=== PATIENT | male | born 1930 | race Caucasian/White ===

== ENCOUNTER 2018-07-21 18:46 | Inpatient (IN) | payer OTHER, MEDICARE ==
[~2018-07-21] VITALS: Ht 182.9 cm; Wt 74.1 kg
[2018-07-21 19:00] VITALS: BP 145/91
[2018-07-21] MEDS ORDERED: ASPIR 8181 MG PO (19:18)
[2018-07-21] MEDS ORDERED: CLONIDINE0.1 PO (19:18)
[2018-07-21] MEDS ORDERED: WELLBUTRIN 100100 MG PO (19:19)
[2018-07-21] MEDS ORDERED: COENZYME Q-1030 MG PO (19:20)
[2018-07-21] MEDS ORDERED: FISH OIL 1,001000 M2 PO (19:21)
[2018-07-21] MEDS ORDERED: GLUCOSAMINE HC500 MG PO (19:21)
[2018-07-21] MEDS ORDERED: COL-RITE250 MG PO (19:21)
[2018-07-21] MEDS ORDERED: LISINOPRIL20 MG PO (19:22)
[2018-07-21] MEDS ORDERED: ZOCOR40 MG PO (19:22)
[2018-07-21] MEDS ORDERED: PROBIOTIC1 EAC1 PO (19:22)
[2018-07-21] MEDS ORDERED: LOPRESSOR25 PO (19:22)
[2018-07-21] MEDS ORDERED: VITAMINC500 PO (19:23)
[2018-07-21] MEDS ORDERED: VITAMIN E400 UNIT PO (19:23)
[2018-07-21] MEDS ORDERED: VITAMIN D3400 UNIT PO (19:23)
[2018-07-21] MEDS ORDERED: VITAMIN B COMP1 EACH PO (19:24)
[2018-07-21 20:03] LABS: HEMATOCRIT 22.7 % (42.0-52.0); HEMOGLOBIN 7.5 gm/dL (14.0-18.0); RBC 2.16 mil/uL (4.50-6.00); WBC 26.7 thou/uL (4.0-11.0)
[2018-07-21 20:06] LABS: MCH 34.8 pg (26.0-34.0); MCV 105.3 fL (80.0-100.0); MPV 7.8 fl. (7.2-11.1); NUCLEATED RBCS 0 /100WBC; PLATELET COUNT* 124 thou/uL (150-400); RDW-CV 17.1 % (10.5-14.5)
[2018-07-21 20:10] LABS: CALCIUM 8.8 mg/dL (8.5-10.1); CREATININE 1.1 mg/dL (0.6-1.3); POTASSIUM 3.4 mmol/L (3.5-5.1)
[2018-07-21 20:15] LABS: ALBUMIN 3.2 g/dL (3.4-5.0); TOTAL BILIRUBIN 0.9 mg/dL (<0.1-1.0); TOTAL PROTEIN 7.4 g/dL (6.4-8.2)
[2018-07-21 20:23] LABS: ABSOLUTE LYMPHOCYTES 21.6 thou/uL (0.8-5.3); ABSOLUTE MONOCYTES 1.3 thou/uL (0.0-1.2); ABSOLUTE NEUTROPHILS 3.7 thou/uL (1.6-8.1); ATYPICAL LYMPHS 1 %; PLATELET ESTIMATE DECREASED
[2018-07-21 20:24] LABS: ANISOCYTOSIS 1+; MACROCYTES 1+
[2018-07-21 20:32] LABS: URINE BILIRUBIN NEGATIVE (Negative); URINE BLOOD NEGATIVE (Negative); URINE CLARITY CLEAR; URINE COLOR YELLOW; URINE GLUCOSE-RANDOM NEGATIVE (Negative); URINE KETONES NEGATIVE (Negative); URINE LEUKOCYTES-REFLEX NEGATIVE (Negative); URINE NITRITE-REFLEX NEGATIVE (Negative); URINE PROTEIN 1+ (Negative); URINE SPECIFIC GRAVITY >= 1.030 (1.005-1.030); URINE UROBILINOGEN 0.2 E.U./dl (0.2-1.0)
[2018-07-21 22:12] LABS: ABSOLUTE EOSINOPHILS 0.1 thou/uL (0.0-0.7); ABSOLUTE LYMPHOCYTES 23.1 thou/uL (0.8-5.3); ABSOLUTE MONOCYTES 1.2 thou/uL (0.0-1.2); ABSOLUTE NEUTROPHILS 4.2 thou/uL (1.6-8.1); BASOPHILS 0.1 %; EOSINOPHILS 0.2 %; HEMATOCRIT 22.8 % (42.0-52.0); HEMOGLOBIN 7.5 gm/dL (14.0-18.0); LYMPHOCYTES 80.8 %; MCH 34.7 pg (26.0-34.0); MCHC 32.7 g/dL (28.0-37.0); MCV 106.1 fL (80.0-100.0); MONOCYTES 4.1 %; MPV 7.7 fl. (7.2-11.1); NUCLEATED RBCS 0 /100WBC; PLATELET COUNT* 117 thou/uL (150-400); POLYS 14.8 %; RBC 2.15 mil/uL (4.50-6.00); WBC 28.6 thou/uL (4.0-11.0)
[2018-07-21 23:50] VITALS: BP 135/81
[2018-07-22 01:31] VITALS: BP 103/57; BP 104/70; BP 110/69; BP 111/68
[2018-07-22] MEDS ORDERED: WELLBUTRIN SR200 MG PO (04:23)
[2018-07-22] MEDS ORDERED: METAMUCIL1 EAC1 PO (04:28)
[2018-07-22] MEDS ORDERED: PREPARATION H1 EAC2 PAD (04:33)
[2018-07-22 06:33] LABS: HEMATOCRIT 22.2 % (42.0-52.0); HEMOGLOBIN 7.5 gm/dL (14.0-18.0)
--- NOTE | 2018-07-22 07:57 | NUR ---
PT ADMITTED TO UNIT. ASSESSMENT DOCUMENTED. MEDS GIVEN PER E-DEC. DURRING ADMISSION PT STATED THAT HE DID HAVE THOUGHTS OF HARMING HIMSELF AND HAD THOUGHTS THAT LIFE WAS NOT WORTH LIVING. PT STATED THAT HE WAS WANTING TO OVERDOSE ON BENEDRYL AND CLONIDINE. SI PRECAUTIONS PUT IN PLACE, OBSTETRICS NURSE PRACTITIONER NOTIFIED, DR NOTIFIED, AFFIDAVID FILLED OUT AND ON CHART. ONE UNIT OF BLOOD GIVEN. HOSPITALIST ORDERED FOR H&H AFTER ONE UNIT. NO REACTION TO BLOOD TRANSFUSING. WILL CONTINUE WITH PLAN OF CARE.
[2018-07-22 08:15] VITALS: BP 107/64
[2018-07-22 11:22] VITALS: BP 102/56; BP 104/59; BP 108/62; BP 126/79; BP 130/74; BP 97/55
--- NOTE | 2018-07-22 14:17 | EKG ---
[place] [address] ELECTROCARDIOGRAM REPORT Name: HERMELINDA LAURA Room: [address] ADM IN [facility].#: [id number] Admission: 07/21/18 Attend Phys: Joan Gregory MD Discharge: Date of : 32 Report #: [id number] THIS REPORT FOR: //name// [facility] ED Test Date: 2018-07-21 Test Time: 19:20:15 Pat Name: HERMELINDA LAURA Department: Room: [facility] Gender: M Mechanical Process Engineer: LAURIE : 1930 Requested By: Micheline Cuello Order Number: [id number] MD: Arthur Aburto Measurements Intervals [place] Rate: 78 P: 261 TN: 205 QRS: -81 QRSD: 160 T: 97 QT: 436 QTc: 497 Interpretive Statements ventricular paced rhythm No further analysis attempted due to paced rhythm No previous ECG available for comparison Electronically Signed On 07-22-2018 14:17:30 CDT by Arthur Aburto [email or web address] <ELECTRONICALLY SIGNED> By: Arthur Aburto MD, [facility] 07/22/18 1417 19 19 Arthur Aburto MD, FAC /EPI
--- NOTE | 2018-07-22 15:09 | NUR ---
SW met with pt to complete initial assessment, introduce self, and SW role. Pt son and bedside as well as 1:1 sitter in the room. Pt alert, oriented. Pt lived at home with his . Possible placement in SNF or rehab at dc. Pt did not have any questions or concerns at this time. SW to continue to follow to assist with safe dc planning.
--- NOTE | 2018-07-22 16:34 | NUR ---
Talib PANTOJA COMPLETED THIS P.M. FULL DOCUMENTATION TO FOLLOW.
--- NOTE | 2018-07-22 17:04 | NUR ---
PATIENT GIVEN 1 UNIT OF PRBC'S THIS SHIFT, AWAITING HGB REDRAW THIS EVENING. UP TO CHAIR WITH THERAPY. PATIENT REFUSED ANY PRN VICODIN THIS SHIFT. MAG CITRATE GIVEN PER ORDERS THIS AFTERNOON, LARGE BM NOTED. IVF INFUSING. PATIENT REMAINS 1:1, TELEPSYCH EVAL THIS AM AND RECOMMENDATIONS MADE. PATIENT STARTED ON DAILY EFFEXOR, WILL INCREASE DOSE ON DAY 4 AND DAY 11 PER RECOMMENDATIONS. ORTHO SAW PATIENT THIS AFTERNOON AND OK FOR 50% WB TO RIGHT LEG. PATIENT UP TO BSC THIS EVENING AND UTILIZING URINAL THIS SHIFT.
[2018-07-22 20:30] VITALS: BP 120/72
[2018-07-23 04:11] LABS: HEMATOCRIT 23.8 % (42.0-52.0); HEMOGLOBIN 7.8 gm/dL (14.0-18.0); MCH 32.6 pg (26.0-34.0); MCHC 32.9 g/dL (28.0-37.0); MPV 7.8 fl. (7.2-11.1); NUCLEATED RBCS 0 /100WBC; PLATELET COUNT* 110 thou/uL (150-400); RBC 2.41 mil/uL (4.50-6.00); RDW-CV 22.1 % (10.5-14.5); WBC 24.6 thou/uL (4.0-11.0)
[2018-07-23 04:18] LABS: CALCIUM 8.7 mg/dL (8.5-10.1); CREATININE 1.1 mg/dL (0.6-1.3); POTASSIUM 3.3 mmol/L (3.5-5.1)
[2018-07-23 04:24] LABS: MCV 98.9 fL (80.0-100.0)
--- NOTE | 2018-07-23 05:40 | NUR ---
PT SLEPT MOST OF SHIFT. ASSESSMENT DOCUMENTED. MEDS GIVEN PER E-MAR. IV PATENT, FLUIDS INFUSING. PAIN MEDS GIVEN PER E-MAR FOR SACRAL PAIN. SITTER REMAINED IN ROOM, SAFETY MAINTAINTED. WILL CONTINUE WITH PLAN OF CARE.
[2018-07-23 05:41] LABS: ABSOLUTE BASOPHILS 0.2 thou/uL (0.0-0.2); ABSOLUTE EOSINOPHILS 0.2 thou/uL (0.0-0.7); ABSOLUTE LYMPHOCYTES 17.2 thou/uL (0.8-5.3); ABSOLUTE MONOCYTES 1.2 thou/uL (0.0-1.2); ABSOLUTE NEUTROPHILS 5.7 thou/uL (1.6-8.1); ATYPICAL LYMPHS 4 %; PLATELET ESTIMATE DECREASED
[2018-07-23 05:42] LABS: ANISOCYTOSIS 1+; HYPOCHROMASIA Occasional; POIKILOCYTOSIS 1+
[2018-07-23 08:30] VITALS: BP 154/92
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
--- NOTE | 2018-07-23 17:14 | NUR ---
PATIENT ALERT AND ORIENTED X 4. RESTING AT THIS TIME. VITAL SIGNS STABLE ON ROOM AIR. AFEBRILE. UP WITH ASSIST OF ONE TO COMODE. 1:1 SITTER AT BEDSIDE. IV PATENT AND SALINE LOCKED. DENIES NAUSEA. PAIN BEING MANAGED WITH PO MEDICATION. HOURLY ROUNDS MAINTAINED THROUGHOUT THE SHIFT. CALL LIGHT WITHIN REACH. NURSING WILL CONTINUE TO MONITOR.
[2018-07-23 17:15] VITALS: BP 147/97
[2018-07-23 23:30] VITALS: BP 156/100
[2018-07-24 03:30] VITALS: BP 144/75
[2018-07-24 04:09] LABS: ABSOLUTE EOSINOPHILS 0.1 thou/uL (0.0-0.7); ABSOLUTE LYMPHOCYTES 17.7 thou/uL (0.8-5.3); ABSOLUTE MONOCYTES 0.9 thou/uL (0.0-1.2); ABSOLUTE NEUTROPHILS 3.1 thou/uL (1.6-8.1); BASOPHILS 0.2 %; EOSINOPHILS 0.5 %; HEMATOCRIT 22.5 % (42.0-52.0); HEMOGLOBIN 7.6 gm/dL (14.0-18.0); MCH 33.7 pg (26.0-34.0); MCHC 33.8 g/dL (28.0-37.0); MCV 99.7 fL (80.0-100.0); MONOCYTES 4.2 %; MPV 7.4 fl. (7.2-11.1); NUCLEATED RBCS 0 /100WBC; PLATELET COUNT* 109 thou/uL (150-400); POLYS 14.1 %; RBC 2.26 mil/uL (4.50-6.00); RDW-CV 21.5 % (10.5-14.5); WBC 21.8 thou/uL (4.0-11.0)
[2018-07-24 04:31] LABS: CALCIUM 8.6 mg/dL (8.5-10.1); CREATININE 0.9 mg/dL (0.6-1.3); POTASSIUM 3.4 mmol/L (3.5-5.1)
--- NOTE | 2018-07-24 06:55 | NUR ---
PATIENT SLEPT MOST OF THE NIGHT. IV REMAINS SALINE LOCKED. PATIENT WAS GIVEN PAIN MEDICINE TWICE THIS SHIFT. BP HAS BEEN ELEVATED CLONIDINE WAS GIVEN TWICE PRN. PATIENT REMAINS 1:1 SITTER. WILL CONTINUE TO MONITOR.
[2018-07-24 08:45] VITALS: BP 143/88
[2018-07-24 16:23] VITALS: BP 147/90
--- NOTE | 2018-07-24 16:57 | NUR ---
PATIENT 1:1 SITTER DC'D THIS SHIFT PER TELEPSYCH PHYSICIAN AND DR. COLVIN. PATIENT TO POSSIBLY DISCHARGE TO REHAB TOMORROW. PRN VICODIN GIVEN X 1 THIS SHIFT WITH THERAPY. VOIDING PER URINAL. FAMILY AT BEDSIDE THIS EVENING. GOOD APPETITE NOTED.
[2018-07-24 20:30] VITALS: BP 130/87
[2018-07-25 04:00] VITALS: BP 118/79
--- NOTE | 2018-07-25 06:34 | NUR ---
PATIENT SLEPT MOST OF THE NIGHT. PATIENT WAS GIVEN PAIN MEDICINE TWICE THIS SHIFT. PATIENT IS POSSIBLY BEING DISCHARGED TO OUR REHAB TODAY. WILL CONTINUE TO MONITOR.
[2018-07-25 08:30] VITALS: BP 141/99
--- NOTE | 2018-07-25 11:45 | NUR ---
CONTINUING TO FOLLOW PATIENT ALONG WITH DR. SEVERINO. PATIENT HAS BEEN PARITICIPATING WITH THERAPIES. 1:1 SITTER WAS DISCHARGED YESTERDAY. PATIENT CONTINUES TO IMPROVE IN NEED OF ACUTE REHAB. WILL PLAN TO ACCEPT PATIENT TO ACUTE REHAB THIS AFTERNOON IF STABLE FOR DISCHARGE FROM ACUTE.
--- NOTE | 2018-07-25 11:50 | NUR ---
Pt to dc to inpt acute rehab unit today.
[2018-07-25 13:10] VITALS: BP 141/99
[2018-07-25] MEDS ORDERED: NORCO 5-325 TA1 EACH PO (13:26)
[2018-07-25] MEDS ORDERED: COL-RITE250 MG PO (13:28)
--- NOTE | 2018-07-25 14:36 | NUR ---
PATIENT IS ALERT AND ORIENTED TODAY VERY PLEASANT. UP WITH GAIT BELT AND WALKER WITH 50% WEIGHT BEARING ON RIGHT LOWER LEG. NO COMPLAINTS OF PAIN TODAY. PATIENT IS BEING DISCHARGED TO REHAB UNIT ROOM 321. PATIENT LEFT CHAIR TO ROOM AND REPORT GIVEN TO JUAN.
[2018-07-25 14:38] VITALS: BP 141/99
[2018-07-25] MEDS ORDERED: EFFEXOR XR37.5 MG PO (15:07)
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
== END 2018-07-25 14:35 | DRG 964 ==
LOC: M.ERS 18:46 → M.3W 22:28 → M.TBA-ER 22:28 → M.3W 07-22 00:10
PROVIDERS: Internal Medicine; Personal Emergency Response Attendant; ADMIT Internal Medicine
PROC: 30233N1 Transfusion of Nonautologous Red Blood Cells into Peripheral Vein, Percutaneous Approach (ICD-10-PCS; principal; 2018-07-22)
DX: S72.001A Fracture of unspecified part of neck of right femur, initial encounter for closed fracture (principal); S32.401A Unspecified fracture of right acetabulum, initial encounter for closed fracture; C91.10 Chronic lymphocytic leukemia of B-cell type not having achieved remission; S32.591A Other specified fracture of right pubis, initial encounter for closed fracture; S37.22XA Contusion of bladder, initial encounter; D62 Acute posthemorrhagic anemia; F32.9 Major depressive disorder, single episode, unspecified; I10 Essential (primary) hypertension; Z98.49 Cataract extraction status, unspecified eye; K59.00 Constipation, unspecified; Z95.0 Presence of cardiac pacemaker; S30.0XXA Contusion of lower back and pelvis, initial encounter; V89.2XXA Person injured in unspecified motor-vehicle accident, traffic, initial encounter; Y93.89 Activity, other specified; Y92.89 Other specified places as the place of occurrence of the external cause; Y99.8 Other external cause status

== ENCOUNTER → 2018-07-21 | Outpatient (CLI) | payer MEDICARE ==
[~2018-07-21] MED LIST: ASPIR 8181 MG PO; CLONIDINE0.1 PO; COENZYME Q-1030 MG PO; COL-RITE250 MG PO; EFFEXOR XR37.5 MG PO; FISH OIL 1,001000 M2 PO; GLUCOSAMINE HC500 MG PO; LISINOPRIL20 MG PO; LOPRESSOR25 PO; METAMUCIL1 EAC1 PO; NORCO 5-325 TA1 EACH PO; PREPARATION H1 EAC2 PAD; PROBIOTIC1 EAC1 PO; TRAMADOL 50 MG50 MG PO; VITAMIN B COMP1 EACH PO; VITAMIN D3400 UNIT PO; VITAMIN E400 UNIT PO; VITAMINC500 PO; WELLBUTRIN 100100 MG PO; WELLBUTRIN SR200 MG PO; ZOCOR40 MG PO
[2018-07-21 17:40] LABS: HEMATOCRIT 24.5 % (42.0-52.0); HEMOGLOBIN 8.1 gm/dL (14.0-18.0); MCH 34.8 pg (26.0-34.0); MCHC 32.9 g/dL (28.0-37.0); MCV 105.7 fL (80.0-100.0); MPV 7.6 fl. (7.2-11.1); RBC 2.32 mil/uL (4.50-6.00); RDW-CV 16.9 % (10.5-14.5); WBC 28.7 thou/uL (4.0-11.0)
== END ==
LOC: M.CT 17:21
PROVIDERS: Internal Medicine
DX: M25.551 Pain in right hip (principal); V89.2XXA Person injured in unspecified motor-vehicle accident, traffic, initial encounter; I10 Essential (primary) hypertension

== ENCOUNTER 2018-07-25 12:40 | Inpatient (IN) | payer MEDICARE ==
[~2018-07-25] VITALS: Ht 182.9 cm; Wt 71.2 kg
[~2018-07-25 12:40] MED LIST changes: -EFFEXOR XR37.5 MG PO; -NORCO 5-325 TA1 EACH PO; -TRAMADOL 50 MG50 MG PO
[2018-07-25] MEDS ORDERED: NORCO 5-325 TA1 EACH PO (13:26)
[2018-07-25] MEDS ORDERED: COL-RITE250 MG PO (13:28)
[2018-07-25] MEDS ORDERED: EFFEXOR XR37.5 MG PO (15:07)
[2018-07-25 15:30] VITALS: BP 157/93
--- NOTE | 2018-07-25 18:33 | NUR ---
PATIENT TRANSFERRED TO UNIT THIS AFTERNOON, ASSESSMENT AND ADMIT ORDERS COMPLETED, PATIENT ALERT/ORIENTED, NO COMPLAINTS OF PAIN SO FAR, UP WITH ASSIST OF ONE AND WALKER. TAKES PILLS WHOLE WITH WATER, WILL HAVE THERAPIES EVALS IN THE AM. BED/CHAIR ALARMS IN PLACE, HOURLY ROUNDING COMPLETED. CALL LIGHT IN REACH.
[2018-07-25 21:48] VITALS: BP 176/107
[2018-07-25 22:27] VITALS: BP 161/108
[2018-07-26 00:35] VITALS: BP 170/105
--- NOTE | 2018-07-26 02:16 | NUR ---
ASSUMED CARE @ 1934-07/25-SATURDAY.APPEARS SLEEPING IN RECLINER W/ LE'S UP.URINAL W/IN REach.CHAIR ALARM ALREADY ON @ 1934.AWAKE @ 2032.BP @ 2147-176/106-LEFT ARM.PRN CLONIDINE 0.1 MG ORAL GIVEN @ 2147.ASSISTED TO BED @ 2154.HOB UP.LEFT HEEL PINK-LEFT HEEL OFF BED & BED ALARM PUT ON @ 2154.50% WB RIGHT LE OBSERVED DURING TRANSFER.BP @ 2226-LEFT ARM-161/108.CALLED [facility] ANSWERING SERVICE @ 2231.DR HAMILTON RETURNED CALL @ 223.ORDERED NORVASC 5 MG ORAL Q HS TO START NOW & GIVEN @ 2304.SEE PAIN MANAGEMENT @ 2335.BP RECHECKED @ 07/26-SAT-170/105.REMAINS ASYMPTOMATIC W/ ALL ELEVATED BP'S.DR HAMILTON CALLED AGAIN & RETURNED CALL @ 9893.INFORMED THAT PT.REQUESTING PRN DOSE CLONIDINE W/C IS ORDERED BID BUT DR HAMILTON JUST SAID TO MONITOR BP'S.ON HOURLY ROUNDS.
[2018-07-26 02:35] VITALS: BP 167/103
[2018-07-26 04:33] VITALS: BP 150/86
--- NOTE | 2018-07-26 05:41 | NUR ---
BP RE-CHECKED @ 0695167/103.REMAINS ASYMPTOMATIC.BP RECHECKED @ 6313150/86. REQUESTED PRN CLONIDINE 0.1 MG ORAL & GIVEN @ 0433.WEARS PULL UPS.REFUSED HS SNACK.SLEEPING EARLY SINCE 1935 IN RECLINER.USED URINAL BY SELF X2.STAND W/ ASSIST TO USE URINAL X1.
[2018-07-26 05:45] LABS: HEMATOCRIT 25.1 % (42.0-52.0); HEMOGLOBIN 8.2 gm/dL (14.0-18.0); MCH 32.9 pg (26.0-34.0); MCHC 32.6 g/dL (28.0-37.0); MCV 100.7 fL (80.0-100.0); MPV 7.7 fl. (7.2-11.1); NUCLEATED RBCS 0 /100WBC; PLATELET COUNT* 126 thou/uL (150-400); RBC 2.49 mil/uL (4.50-6.00); RDW-CV 21.1 % (10.5-14.5); WBC 26.6 thou/uL (4.0-11.0)
[2018-07-26 06:12] LABS: CALCIUM 8.8 mg/dL (8.5-10.1); POTASSIUM 3.6 mmol/L (3.5-5.1)
[2018-07-26 06:30] VITALS: BP 143/93
[2018-07-26 07:00] VITALS: BP 142/89
[2018-07-26 07:05] LABS: ABSOLUTE BASOPHILS 0.3 thou/uL (0.0-0.2); ABSOLUTE LYMPHOCYTES 23.4 thou/uL (0.8-5.3); ABSOLUTE NEUTROPHILS 2.9 thou/uL (1.6-8.1)
[2018-07-26 07:06] LABS: ANISOCYTOSIS 2+; MACROCYTES 1+; PLATELET ESTIMATE ADEQUATE; POLYCHROMASIA 1+
--- NOTE | 2018-07-26 16:14 | NUR ---
ASSUMED CARE AT 0730. ALERT ORIENTED PLEASANT COOPERATIVE. HX OF RT. HIP/PELVIC FX 50% WEIGHT BEARING RT. LEG. FEEDS SELF AND TAKES MEDS WITHOUT DIFFICULTY 2-3 AT A TIME. MEDICATED X 2 FOR C/O RT. HIP PAIN BEFORE THERAPIES. PARTICIPATING IN THERAPIES THROUGHOUT THE DAY USES CALL LIGHT APPROPRIATELY FOR ASSISTANCE. TRANSFERS WITH 1 ASSIST G BELT WALKER. BP WAS MUCH BETTER THIS A.M.
[2018-07-26 20:00] VITALS: BP 141/90
--- NOTE | 2018-07-27 05:10 | NUR ---
ASSUMED CARES AT 1920. S/P RIGHT HIP AND PEVIC FRACTURE. 50% WT BEARING TO RLE. TAKES PILLS WHOLE WITHOUT ISSUES. PAIN MEDS GIVEN FOR RIGHT HIP PAIN. MIN ASSIST WITH GAIT BELT AND WALKER. STANDS TO USE URINAL AND RN EMPTIES. PT CONCERNED WITH BOWELS. ASKED TO HAVE MIRALAX ADDED TO BOWEL REGIMEN. MIRALAX ORDERED PER PT REQUEST. SLEPT OFF AND ON. USED CALL LIGHT APPROPRIATELY. BED ALARM ON.
[2018-07-27 08:30] VITALS: BP 155/94
--- NOTE | 2018-07-27 16:14 | NUR ---
PT IS ALERT AND ORIENTED X 4. PT REPORTS MINIMAL PAIN AND DID NOT REQUEST ANY PAIN MEDICATION WHEN OFFERED-12/07. UP WITH SBA X 1 WITH WALKER AND GAIT BELT TO TRANSFER. USES W/C FOR TRANSPORT TO DINING AREA. USES URINAL. HOURLY ROUNDS MAINTAINED. WILL USE CALL LIGHT FOR ASSISTANCE. CALL LIGHT WITHIN REACH. NURSING WILL CONTINUE TO MONITOR.
[2018-07-27 20:00] VITALS: BP 141/93
--- NOTE | 2018-07-28 05:15 | NUR ---
ASSUMED CARES AT 1920. ALERT AND ORIENTED. PLEASANT. S/P RIGHT HIP AND PELVIC FRACTURE. 50% WT BEARING RLE. PAIN MEDS GIVEN PER REQUEST FOR RIGHT HIP PAIN. TAKES PILLS WHOLE WITHOUT ISSUES. MIN ASSIST WITH GAIT BELT AND WALKER. USES URINAL AND RN EMPTIES. PT ATTEMPTED TO HAVE BM BUT WAS UNABLE TO. ASKING FOR MAG CITRATE TO HELP MOVE BOWELS. SLEPT MOST OF THE NIGHT. USED CALL LIGHT. BED ALARM ON.
[2018-07-28 08:03] VITALS: BP 151/94
--- NOTE | 2018-07-28 13:24 | NUR ---
Inpt acute rehab unit assessment: SW met with pt to complete initial assessment, introduce self, and SW role on inpt rehab unit. Pt alert, oriented. Pt lives at home in a townhouse with his and dtr and granddtr (who is 8). Pt has a RW and transport wc, shower chair, and raised toilets. Pt family available to be home with pt 20/05. Pt was fairly independent prior to hospitalization. Pt and pt do not drive. Pt other family helps provide transportation as needed. Pt expressed pt to be contacted after team conferences or for any updates. Pt goal to be able to dc home but pt also expressed he wasn't sure if he would recover enough to be as independent as he would exprect to need to be to be safe at home. Pt PCP Dr Nunes. Pt did not have any known prior HH services or SNF. SW provided encouragement and discussed team conferences and reviewing each Saturday. SW called pt and introduced self as well as in preparation for team conference. Pt provided more information about home layout and plans for pt for home at dc. Pt did not have any questions or comments at this time. SW to continue to follow to assist with safe dc planning.
--- NOTE | 2018-07-28 13:45 | NUR ---
AM ASSESSMENT AND VITAL SIGNS COMPLETED DOCUMENTED. PT HAS PARTICIPATED IN ALL THERAPY SESSIONS. PRN HYDROCODONE GIVEN WITH AM MEDS PRIOR TO THERAPY. PT HAS A GOOD APPETITE, TAKES HIS PILLS WHOLE WITH WATER. PT HAD COLACE, METAMUCIL AND MIRALAX THIS AM, HE IS REQUESTING MAG CITRATE IF HE DOESN'T HAVE A BOWEL MOVEMENT BY TONIGHT. FALL PRECAUTIONS AND HOURLY ROUNDING CONTINUE.
[2018-07-28 20:00] VITALS: BP 142/83
--- NOTE | 2018-07-29 05:30 | NUR ---
ASSUMED CARES AT 1920. ALERT AND ORIENTED. CALM AND COOPERATIVE. TAKES PILLS WHOLE WITHOUT ISSUES. PAIN MEDS GIVEN WHEN REQUESTED FOR RIGHT HIP PAIN. MIN ASSIST WITH GAIT BELT AND WALKER. USES URINAL AND RN EMPTIES. SLEPT OFF AND ON. CALL LIGHT IN REACH AND BED ALARM ON.
[2018-07-29 08:00] VITALS: BP 148/90
--- NOTE | 2018-07-29 12:48 | NUR ---
AM ASSESSMENT AND VITAL SIGNS COMPLETED DOCUMENTED. PT IS NOW TAKING SCHEDULED TRAMADOL FOR RIGHT PELVIC/ HIP PAIN. PT STATES HIS PAIN IS WELL CONTROLLED, ABLE TO PARTICIPATE IN THERAPY AND IS COMFORTABLE AT REST. PT HAS BEEN SBA FOR TRANSFERS AND AMBLATION TODAY, USES A WALKER AND IS 50% WEIGHT BEARING WITH RIGHT LEG. FALL PRECAUTIONS AND HOURLY ROUNDING IN PLACE.
[2018-07-29 20:00] VITALS: BP 139/85
--- NOTE | 2018-07-30 05:36 | NUR ---
ASSUMED PT CARES AT 1930. PT ALERT AND ORIENTED X4, POLITE AND COOPERATIVE WITH CARES. PT TAKES PILLS WHOLE WITH WATER WITHOUT DIFFICULTY. SCHEDULED TRAMADOL FOR RIGHT PELVIC/HIP PAIN. MIN ASSIST WITH GAIT BELT AND WALKER. USES URINAL, STAFF EMPTIES. STOOL X1 THIS SHIFT FOLLOWING MAG CITRATE. PT SLEPT MOST OF THE NIGHT. USES CALL LIGHT APPROPRIATELY. CALL LIGHT AND FREQUENTLY USED ITEMS WITHIN REACH. HOURLY ROUNDING IN PROGRESS, WILL CONTINUE TO MONITOR.
[2018-07-30 07:45] VITALS: BP 141/89
--- NOTE | 2018-07-30 14:37 | NUR ---
NAWAF and Dr Ventura met with pt to review team conference summary and discuss plan for pt to continue therapies another week and with possible dc date next 08/07. NAWAF called and left message with pt shanti Jenkins to review and provide update on plans as well and encouraged a call back with any questions or comments. SW to continue to follow to assist with safe dc planning.
--- NOTE | 2018-07-30 18:22 | NUR ---
PATIENT HAS BEEN A/O X 4 THIS SHIFT. MEDICATED FOR RIGHT HIP PAIN WITH SCHEDULED TRAMADOL AND PRN HYDROCODONE THIS SHIFT WITH GOOD EFFECT. PATIENT UP WITH SBA, GAITBELT, AND WALKER. CONTINUES TO BE 50% WB TO RIGHT LEG. TO DINING ROOM FOR LUNCH AND DINNER. PATIENT PARTICIPATED WITH ALL THERAPIES THIS SHIFT. VOIDING PER URINAL, PATIENT ABLE TO COMPLETE CLOTHING MANAGEMENT, STAFF EMPTIES URINAL. UP IN RECLINER BETWEEN THERAPY SESSIONS. APPETITE GOOD. FALL PRECAUTIONS IN PLACE. HOURLY ROUNDING COMPLETED. CALL LIGHT WITHIN REACH. WILL CONTINUE WITH PLAN OF CARE.
[2018-07-30 20:00] VITALS: BP 129/71
--- NOTE | 2018-07-31 04:59 | NUR ---
ASSUMED PT CARE AT 1930. PT ALERT AND ORIENTED X4, POLITE AND COOPERATIVE WITH CARES. PT UP TO VOID WITH SBA, GAIT BELT AND WALKER, STAFF EMPTIES URINAL. PT IS 50% WB TO RIGHT LEG. NO PRN PAIN MEDICATIONS THIS SHIFT. USES CALL LIGHT APPROPRIATELY. CALL LIGHT AND FREQUENTLY USED ITEMS WITHIN REACH. HOURLY ROUNDING IN PROGRESS, WILL CONTINUE TO MONITOR.
[2018-07-31 08:00] VITALS: BP 136/84
[2018-07-31 08:50] VITALS: BP 136/84
--- NOTE | 2018-07-31 16:19 | NUR ---
SW called and spoke with pt Radha at [phone] to follow up after team conference yesterday (since SW had attempted to review yesterday with pt dtr and had left a message). Pt dtr expressed that SW should normally discuss with pt instead of her. SW discussed dc plan of reteam with possible dc next and services to follow. SW to continue to follow to assist with safe dc planning.
--- NOTE | 2018-07-31 16:24 | NUR ---
PATIENT REMAINS ALERT AND ORIENTED. PAIN CONTROLLED WITH TRAMADOL AND HYDROCODONE. TOLERATING MEALS. VOIDING PER URINAL. ASSIST OF 1, GAITBELT AND WALKER FOR TRANSFERS AND AMBULATION. PARTICIPATES IN ALL THERAPIES. REFUSED LAXATIVES DUE TO DIARRHEA LAST NIGHT.CALL LIGHT WITHIN REACH. WILL CONTINUE TO MONITOR.
[2018-07-31 20:03] VITALS: BP 130/73
--- NOTE | 2018-08-01 05:10 | NUR ---
ASSUMED CARE AT 1920. ALERT AND ORIENTED. PLEASANT. RIGHT HIP AND PELVIC FRACTURES. 50% WT BEARING RLE. PAIN MEDS GIVEN. TAKES PILLS WHOLE WITHOUT ISSUES. MIN ASSIST WITH GAIT BELT AND WALKER. UP TO BATHROOM. DOES OWN CARES. PT DID REFUSE LOVENOX. SAYS THAT WANTS TO DISCUSS FURTHER WITH DOCTOR DUE TO HIS CHRONIC LYMPHOCYTIC LEUKEMIA. SLEPT WELL MOST OF THE NIGHT CALL LIGHT IN REACH AND BED ALARM ON.
[2018-08-01 07:57] VITALS: BP 131/80
--- NOTE | 2018-08-01 16:06 | NUR ---
PT ALERT AND ORIENTED X 4. INDICATED MINIMAL PAIN OF RIGHT HIP= 2/10. RECEIVED PO SCHEDULED TRAMADOL FOR PAIN CONTROL. UP WITH SBA X 1 USING GAIT BELT AND WALKER. RECEIVED MORNING AND AFERNOON THERAPIES. VS STABLE. HOURLY ROUNDS MAINTAINED. WILL USE CALL LIGHT FOR ASSISTANCE. CALL LIGHT WITHIN REACH. NURSING WILL CONTINUE TO MONITOR.
[2018-08-01 20:00] VITALS: BP 118/72
--- NOTE | 2018-08-02 00:14 | NUR ---
ASSUMED CARE AT 1930. HX RT HIP AND PELVIC FX. PATIENT UP WITH SBA, GAIT BELT, WALKER, 50% WT BEARING. VOIDS PER TOILET AND STANDS TO VOID. TAKES PILLS WHOLE WITH WATER. REFUSED COLACE. REFUSED LOVENOX DUE TO LOW PLATELET LEVELS RELATED TO CLL. CALL LITE IN REACH. BED ALARM ON. HOURLY ROUNDS CONTINUE.
--- NOTE | 2018-08-02 05:48 | NUR ---
SLEPT MOST OF THE NIGHT EXCEPT TO VOID. TURNS SELF. NO C/O PAIN. HOURLY ROUNDS CONTINUE. BED ALARM ON. CALL LITE IN REACH.
[2018-08-02 07:37] VITALS: BP 131/72
--- NOTE | 2018-08-02 16:20 | NUR ---
Assumed care of pt at 0700, pt up in recliner eating breakfast when this nurse entered room. Pt able to make needs known. Medication taken as prescribed. Pt has c/o pain but states, "Only when I move my hip," Pt particiatped in therapy throughout this shift. Hourly rounding maintained, will cont to monitor.
[2018-08-02 20:00] VITALS: BP 102/65
[2018-08-03 04:24] LABS: HEMATOCRIT 24.5 % (42.0-52.0); MCH 33.3 pg (26.0-34.0); MCHC 32.8 g/dL (28.0-37.0); MCV 101.5 fL (80.0-100.0); MPV 7.5 fl. (7.2-11.1); RBC 2.42 mil/uL (4.50-6.00); WBC 24.8 thou/uL (4.0-11.0)
--- NOTE | 2018-08-03 05:01 | NUR ---
ASSUMED PT CARE AT 1930. PT ALERT AND ORIENTED X4, POLITE AND COOPERATIVE WITH CARES. HX RT HIP AND PELVIC FRACTURES. 50% WT BEARING RLE. SCHEDULED TRAMADOL GIVEN PER DEC. TAKES PILLS WHOLE WITH WATER WITHOUT DIFFICULTY. UP TO BATHROOM TO VOID TWICE OVERNIGHT WITH SBA, GAIT BELT AND WALKER. PT DOES OWN CARES. PT REFUSED LOVENOX CITING CONCERNS DUE TO HIS CHRONIC LYMPHOCYTIC LUKEMIA. PT SLEPT WELL MOST OF NIGHT. TURNS SELF IN BED. BED ALARM ON FOR SAFETY. CALL LIGHT AND FREQUENTLY USED ITEMS WITHIN REACH. HOURLY ROUNDING IN PROGRESS, WILL CONTINUE TO MONITOR.
[2018-08-03 05:34] LABS: ALBUMIN 2.7 g/dL (3.4-5.0); CALCIUM 8.8 mg/dL (8.5-10.1); CREATININE 1.1 mg/dL (0.6-1.3); MAGNESIUM 2.3 mg/dL (1.8-2.4); POTASSIUM 3.7 mmol/L (3.5-5.1); TOTAL BILIRUBIN 0.5 mg/dL (<0.1-1.0); TOTAL PROTEIN 6.6 g/dL (6.4-8.2)
[2018-08-03 07:35] VITALS: BP 123/78
[2018-08-03 07:59] VITALS: BP 123/78
--- NOTE | 2018-08-03 17:45 | NUR ---
ASSUMED CARE AT 0730 PATIENT ALERT/ORIENTED, PAIN TO RIGHT HIP/PELVIS AREA, SCHEDULED TRAMADOL WITH ADDITIONAL HYDROCODONE GIVEN THIS SHIFT WITH FAIR RESULTS, UP WITH ASSIST OF ONE AND WALKER, TO DINING ROOM FOR MEALS, FAMILY VISITING, HOURLY ROUNDING COMPLETED.
[2018-08-03 19:45] VITALS: BP 112/64
--- NOTE | 2018-08-04 05:04 | NUR ---
ASSUMED PT CARE AT 1930. PT ALERT AND ORIENTED X4, POLITE AND COOPERATIVE WITH CARES. HX RT HIP AND PELVIC FRACTURES. 50% WT BEARING RLE. SCHEDULED TRAMADOL GIVEN PER DEC. PRN HYDROCODONE ONCE PER PT REQUEST. TAKES PILLS WHOLE WITH WATER WITHOUT DIFFICULTY. UP TO BATHROOM TO VOID X3 OVERNIGHT WITH SBA, GAIT BELT AND WALKER. NO STOOL THIS SHIFT. PT DOES OWN CARES. PT REFUSED LOVENOX CITING CONCERNS DUE TO HIS CHRONIC LYMPHOCYTIC LUKEMIA. PT SLEPT WELL MOST OF NIGHT. TURNS SELF IN BED. BED ALARM ON FOR SAFETY. CALL LIGHT AND FREQEUENTLY USED ITEMS WITHIN REACH. HOURLY ROUNDING IN PROGRESS, WILL CONTINUE TO MONITOR.
[2018-08-04 08:30] VITALS: BP 133/85
[2018-08-04 09:54] LABS: % SATURATION 21 % (20-39); IRON 48 ug/dL (50-175)
--- NOTE | 2018-08-04 12:33 | NUR ---
PATIENT'S SPOUSE CONACTED CM TO DISCUSS DISCHARGE PLANNING NEEDS AND TO INFORM OF HER CONCERNS FOR PATIENT'S DISCHARGE SATURDAY. PATIENT'S SPOUSE STATES THAT SHE BELIEVES THAT THE PATIENT 'MAY BE DEPRESSED', AND IS 'NERVOUS ABOUT HIM COMING HOME'. D/C CNC FIELD SERVICE ENGINEER INFORMED PATIENT'S SPOUSE THAT THE TRAILHEAD CONSTRUCTION WORKER IN CHARGE OF THE PATIENT WOULD CONACT HER TOMORROW TO F/U AND DISCUSS DISCHARGE PLANNING NEEDS. CM WILL REMAIN AVAILABLE TO ASSIST AND FOLLOW NEEDED.
--- NOTE | 2018-08-04 17:12 | NUR ---
pt remained alert and oriented this shift. pt is standy by assist with walker and gait belt. pt had pt/ot/and st today. pt did well and has only requested pain meds this am, hydrocodone and scheduled toradol given. call light in reach. bed alarm on. will continue to monitor.
--- NOTE | 2018-08-04 18:13 | NUR ---
hourly rounding completed
[2018-08-04 20:06] VITALS: BP 114/74
--- NOTE | 2018-08-05 05:09 | NUR ---
ASSUMED PT CARE AT 1930. PT ALERT AND ORIENTED X4, POLITE AND COOPERATIVE WITH CARES. HX RT HIP AND PELVIC FRACTURES. PT VERY QUIET. SCHEDULED TRAMADOL GIVEN PER MAR, NO PRN PAIN MEDICATIONS GIVEN. TAKES PILLS WHOLE WITH WATER WITHOUT DIFFICUTLY. UP TO BATHROOM TO VOID NUMEROUS TIMES OVERNIGHT WITH SBA, GAIT BELT AND WALKER. NO STOOL THIS SHIFT. PT DOES OWN CARES. TURNS SELF IN BED. BED ALARM ON FOR SAFETY. CALL LIGHT AND FREQUENTLY USED ITEMS WITHIN REACH. USES CALL LIGHT APPROPRIATELY. HOURLY ROUNDING IN PROGRESS, WILL CONTINUE TO MONITOR.
[2018-08-05 08:03] VITALS: BP 125/78
--- NOTE | 2018-08-05 10:23 | NUR ---
NAWAF called pt Radha and addressed pt 's frustrations regarding dc planning. NAWAF discussed again about team to provide recommendations, orders, and explained HH services to follow. NAWAF reminded pt that team conference to reassess pt length of stay with possibility of dc on and if alternate dc plan necessary, would be discussed at that time. Pt and pt dtr to be in pt room tomorrow afternoon to speak with Dr Ventura and NAWAF for review of team conference and SW will continue to follow to assist with safe dc planning.
--- NOTE | 2018-08-05 11:21 | NUR ---
ASSUMED CARE OF PATIENT THIS AM AT 0730. PATIENT IS ALERT AND ORIENTED X 4. HE C/O RIGHT HIP PAIN THIS AM. PATIENT ASSISTED UP TO THE CHAIR THIS AM. HE WAS MEDICATED PO FOR C/O PAIN WITH GOOD RESULTS. PATIENT IS UP WORKING WITH PT AND OT. HIS APPETITE HAS BEEN POOR TODAY. HE DENIES N/V. SURGICAL SITE IS D&I. NO FALLS OR INJURY. PATIENT IS PROGRESSING TOWARDS GOALS.
[2018-08-05 20:00] VITALS: BP 115/73
--- NOTE | 2018-08-06 05:22 | NUR ---
ASSUMED CARES AT 1920. ALERT AND ORIENTED. PLEASANT. STATES THAT RECTAL SORENESS IS BETTER. PAIN MEDS GIVEN FOR RIGHT HIP PAIN. TAKES PILLS WHOLE WITHOUT ISSUES. MIN ASSIST WITH GAIT BELT AND WALKER. UP TO BATHROOM OR USES URINAL AND RN EMPTIES. INITIALLY SLEPT IN REGULAR BED IN NEW ROOM BUT AWOKE AT 0300 AND SAYS THAT WAS UNCOMFORTABLE. SPENT REST OF NIGHT IN RECLINER WHICH WAS BETTER. USING CALL LIGHT APPROPRIATELY. NO OTHER COMPLAINTS.
[2018-08-06 07:51] VITALS: BP 143/86
--- NOTE | 2018-08-06 16:05 | NUR ---
NAWAF and Dr Ventura met with pt, pt , and pt dtr to review team conference summary and plan for pt to dc home with family on Saturday and HH services to follow. Team recommending family training; scheduled for at 1:00 pm. SW to order RW and arrange HH services; SW will continue to follow to assist with safe dc planning. Pt and pt family in agreement with plan.
--- NOTE | 2018-08-06 18:15 | NUR ---
ASSUMED CARE AT 0730 PATIENT ALERT/ORIENTED, PAIN REPORTED AT 4-5 TAKES SCHEDULED TRAMADOL. UP WITH ASSIST OF ONE AND WALKER/GAIT BELT. TO DINING ROOM FOR MEALS, BED/CHAIR ALARMS IN PLACE, CALL LIGHT IN REACH, PARTICIPATED IN ALL THERAPIES TODAY, TO BE DISCHARGED TO HOME ON SATURDAY WITH FAMILY TRAINING TOMORROW.
[2018-08-06 20:00] VITALS: BP 121/73
--- NOTE | 2018-08-07 05:28 | NUR ---
ASSUMED CARE AT 1930. PATIENT RESTING IN RECLINER. STATES THAT HE TRIES TO CHANGE POSITIONS BUT HAS TROUBLE DUE TO HIP PAIN. TAKES PILLS WHOLE WITH WATER. UP WITH SBA, GAIT BELT, WALKER. VOIDS PER TOILET WHILE STANDING. DID SLEEP IN REGULAR BED ALL SHIFT, BUT STAYED ONLY ON HIS BACK DUE TO PAIN DESPITE EDUCATION ABOUT NEED TO CHANGE POSIITONS. NO C/O PAIN. HOURLY ROUNDS CONTINUE. CALL LITE IN REACH.
[2018-08-07 08:28] VITALS: BP 119/72
[2018-08-07 16:36] VITALS: BP 119/72
--- NOTE | 2018-08-07 16:38 | NUR ---
NAWAF met with pt to discuss safe dc planning for tomorrow. Family training completed today. NAWAF ordered RW approved and provided through [facility]; NAWAF discussed with inpt therapy to issue walker prior to pt dc. NAWAF discussed HH services to follow with pt and pt preference for [facility]. NAWAF faxed initial referral information and will fax orders upon dc.
--- NOTE | 2018-08-07 17:42 | NUR ---
AM ASSESSMENT AND VITAL SIGNS COMPLETED DOCUMENTED. PT'S AND DAUGHTER WERE HERE FOR FAMILY TRAINING THIS AFTERNOON. FALL PRECAUTIONS AND HOURLY ROUNDING CONTINUE.
[2018-08-07 20:00] VITALS: BP 139/88
[2018-08-08 04:41] LABS: HEMATOCRIT 27.2 % (42.0-52.0); MCH 33.6 pg (26.0-34.0); MCHC 33.3 g/dL (28.0-37.0); MCV 100.8 fL (80.0-100.0); MPV 7.3 fl. (7.2-11.1); RBC 2.7 mil/uL (4.50-6.00); RDW-CV 21.1 % (10.5-14.5); WBC 21.3 thou/uL (4.0-11.0)
[2018-08-08 05:13] LABS: CALCIUM 9.8 mg/dL (8.5-10.1); CREATININE 1.2 mg/dL (0.6-1.3)
[2018-08-08 05:14] LABS: POTASSIUM 2.9 mmol/L (3.5-5.1)
--- NOTE | 2018-08-08 05:48 | NUR ---
ASSUMED PT CARE AT 1930. PT ALERT AND ORIENTED X4, POLITE AND COOPERATIVE WITH CARES. PT SITTING UP IN RECLINER AT SHIFT CHANGE WITH FEET ELEVATED. PT TAKES PILLS WHOLE WITH WATER WITHOUT DIFFICULTY. PT UP SEVERAL TIMES OVERNIGHT TO VOID. STOOL X1 THIS SHIFT. NO C/O PAIN OR DISTRESS. PT TO DISCHARGE HOME TODAY. AM LABS, PT CRITICAL POTASSIUM OF 2.9. DR. COLVIN ADVISED, ELECTROLYE PROTOCOL ORDERED. PT USES CALL LIGHT APPROPRIATELY. CALL LIGHT AND FREQUENTLY USED ITEMS WITHIN REACH. HOURLY ROUNDING IN PROGRESS, WILL CONTINUE TO MONITOR.
[2018-08-08 07:57] VITALS: BP 115/59
[2018-08-08 09:28] VITALS: BP 119/72
--- NOTE | 2018-08-08 10:24 | NUR ---
Pt to dc home today with family. services to follow; SW faxed final orders to pt preference of [facility]. Pt received RW through [facility]. Pt family to provide pt ride home. No other dc needs expressed.
[2018-08-08 12:10] VITALS: BP 119/72
[2018-08-08] MEDS ORDERED: TRAMADOL 50 MG50 MG PO (12:26)
[2018-08-08 14:16] LABS: CALCIUM 9.7 mg/dL (8.5-10.1); CREATININE 1.2 mg/dL (0.6-1.3)
[2018-08-08 14:21] LABS: POTASSIUM 4.1 mmol/L (3.5-5.1)
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
== END 2018-08-08 14:21 | disposition home health service (06) | DRG 964 ==
LOC: M.REH 12:40
PROVIDERS: Family Medicine; Internal Medicine; ADMIT Physical Medicine & Rehabilitation
DX: S32.491A Other specified fracture of right acetabulum, initial encounter for closed fracture (principal); S37.22XA Contusion of bladder, initial encounter; D62 Acute posthemorrhagic anemia; S32.591A Other specified fracture of right pubis, initial encounter for closed fracture; C91.10 Chronic lymphocytic leukemia of B-cell type not having achieved remission; I10 Essential (primary) hypertension; M17.0 Bilateral primary osteoarthritis of knee; K59.00 Constipation, unspecified; F32.9 Major depressive disorder, single episode, unspecified; R53.81 Other malaise; D63.8 Anemia in other chronic diseases classified elsewhere; V89.2XXA Person injured in unspecified motor-vehicle accident, traffic, initial encounter; Y93.89 Activity, other specified; Y92.89 Other specified places as the place of occurrence of the external cause; Y99.8 Other external cause status; Z98.42 Cataract extraction status, left eye; Z98.41 Cataract extraction status, right eye